=== PATIENT | male | born 1985 | race Two or more races ===

== ENCOUNTER 2024-03-13 22:48 | Emergency (ER) | payer OTHER ==
[~2024-03-13] VITALS: Ht 170.2 cm; Wt 72.6 kg
[2024-03-14] MEDS ORDERED: KETOROLAC TROMETHAMINE 60 MG VIAL IM ONE (00:30)
== END 2024-03-14 02:40 | disposition home or self-care (01) ==
LOC: ER 22:49 → EDBD 23:06 → ER 03-14 02:40
DX: S93.492A Sprain of other ligament of left ankle, initial encounter (principal); S82.892A Other fracture of left lower leg, initial encounter for closed fracture; W19.XXXA Unspecified fall, initial encounter; Y93.89 Activity, other specified; Y92.89 Other specified places as the place of occurrence of the external cause; Y99.8 Other external cause status